=== PATIENT | male | born 1975 | race Two or more races ===

== ENCOUNTER 2022-11-23 20:07 | Emergency (ER) | payer OTHER ==
[~2022-11-23] VITALS: Ht 167.6 cm; Wt 81.6 kg
== END 2022-11-23 23:20 | disposition home or self-care (01) ==
LOC: ER 20:07
DX: U07.1 COVID-19 (principal); Z20.822 Contact with and (suspected) exposure to COVID-19

== ENCOUNTER 2025-10-09 07:14 | Outpatient (CLI) | payer OTHER ==
[2025-10-09 08:04] LABS: URINE APPEARANCE Cloudy; URINE BILIRRUBIN Negative (NEGATIVE); URINE BLOOD Negative; URINE COLOR Yellow; URINE GLUCOSE Negative (NEGATIVE); URINE KETONE Negative (NEGATIVE); URINE LEUKOCYTE Trace; URINE NITRATE Negative; URINE PROTEIN Negative (NEGATIVE); URINE UROBILINOGEN 0.2 E.U./dl
[2025-10-09 08:05] LABS: BASO % 0.5 % (0.1-1.2); EOS # 0.10 (0.04-0.54); EOS % 1.5 % (0.7-7.0); LYMPH # 1.46 (1.18-3.74); LYMPH % 22.4 % (19.3-53.1); MEAN PLATELET VOLUME 9.50 fl (9.4-12.4); MONO # 0.56 (0.24-0.82); MONO % 8.6 % (4.7-12.5); NEUT # 4.37 (1.56-6.13); NEUT % 66.8 % (34.0-71.1); RED CELL DISTRIBUTION WIDTH 12.2 % (11.6-14.4)
[2025-10-09 08:11] LABS: URINE BACTERIA 6.8 uL (0.0-1933)
[2025-10-09 08:28] LABS: URINE CAST 0.00 uL (0.0-1.40); URINE EPITHELIAL CELLS 0.0 uL (0.0-38.8); URINE RBC 1.5 uL (0.0-20.8); URINE WBC 1.4 uL (0.0-23.2)
[2025-10-09 09:33] LABS: ALT/SGPT 32.0 U/L (12-78); AST/SGOT 17.0 U/L (15-37); BILIRUBIN TOTAL 0.7 mg/dL (0.3-1.2); BUN CREA RATIO 14.0 (7.0-25.0); CHOL HDL RATIO 3.1 (0-5.0); CREATININE SERUM 0.91 mg/dL (0.70-1.30); GFR 88.92; GLOBULINA 2.9 G/DL (2.4-3.5); GLUCOSE FASTING 114.0 mg/dL (65-100); HDL 37.0 mg/dl (40-60); LDL 61.0 mg/dl (0-130); OSMOLALITY SERUM 292.0 MOSM/KG (275-295); VLDL 16.0 (0-39)
[2025-10-09 09:35] LABS: TSH 0.064 uIU/mL (0.358-3.74)
== END 2025-10-09 07:19 | disposition home or self-care (01) ==
LOC: LAB 07:14
DX: E11.69 Type 2 diabetes mellitus with other specified complication (principal); E78.2 Mixed hyperlipidemia; E03.9 Hypothyroidism, unspecified; Z13.1 Encounter for screening for diabetes mellitus; Z13.29 Encounter for screening for other suspected endocrine disorder; E55.9 Vitamin D deficiency, unspecified; Z13.220 Encounter for screening for lipoid disorders; Z12.11 Encounter for screening for malignant neoplasm of colon; Z13.6 Encounter for screening for cardiovascular disorders